=== PATIENT | female | born 1980 | race Caucasian/White ===

== ENCOUNTER → 2017-07-11 | Outpatient (CLI) | payer OTHER ==
--- NOTE | 2017-07-11 12:18 | RAD ---
DATE: 07/11/2017 EXAM: MAMMO ARIELLA RUTH PARRA, BREAST LEFT HISTORY: Left breast dimpling in multiple palpable areas reported by patient and physician. COMPARISON: None This study was interpreted with the benefit of Computerized Aided Detection (CAD). The breast parenchyma is dense, which could reduce the sensitivity of mammography. Breast parenchyma level density D. FINDINGS: Bilateral diagnostic breast mammogram: Bilateral digital 2-D and 3-D tomosynthesis CC and MLO views. The areas of palpable abnormality reported by the patient were marked. Scattered bilateral benign breast calcifications. No suspicious mass, calcification or architectural distortion. Patient will proceed to left breast ultrasound for further evaluation of the palpable abnormalities. Left breast ultrasound: Normal-appearing left axillary lymph node. There are multiple scattered simple appearing cysts throughout the upper outer left breast. There is dense fibroglandular breast tissue throughout. There is no suspicious mass identified. IMPRESSION: No evidence of malignancy. There are multiple simple appearing cysts in the upper outer left breast, some of which may account for the palpable abnormalities. BI-RADS CATEGORY: 2 BENIGN FINDING(S) RECOMMENDED FOLLOW-UP: CLIN FOLLOW UP IMAGING CLINICALLY INDICATED PQRS compliance statement: Patient information was entered into a reminder system with a target due date for the next mammogram. Mammography is a sensitive method for finding small breast cancers, but it does not detect them all and is not a substitute for careful clinical examination. A negative mammogram does not negate a clinically suspicious finding and should not result in delay in biopsying a clinically suspicious abnormality. "Our facility is accredited by the [employer] Mammography Program."
== END | disposition home or self-care (01) ==
LOC: MAMMO 08:11
PROVIDERS: ATTEND Nurse Practitioner Family
DX: N63.20 Unspecified lump in the left breast, unspecified quadrant (principal)
CPT/HCPCS: 76641; 77066; G0279; 77062

== ENCOUNTER → 2019-12-22 | Outpatient (CLI) | payer OTHER ==
--- NOTE | 2019-12-22 10:03 | RAD ---
EXAM: Left shoulder, 3 views. HISTORY: Pain. COMPARISON: None. FINDINGS: 3 views of the left shoulder obtained. There is no fracture, dislocation or subluxation. IMPRESSION: No acute osseous finding. Electronically signed by: Ai Aleman MD (12/22/2019 10:00 AM) [id number]
== END ==
LOC: RAD 09:26
PROVIDERS: ATTEND Physician Assistant
DX: M25.512 Pain in left shoulder (principal)
CPT/HCPCS: 73030